=== PATIENT | male | born 1960 | race Caucasian/White ===

== ENCOUNTER 2019-09-25 08:53 | Emergency (ER) | payer BC ==
--- NOTE | 2019-09-25 09:05 | EDM.PDOC ---
ED HPI GENERAL MEDICAL PROBLEM - General Chief Complaint: Skin Complaint Stated Complaint: EAR INFECTION Time Seen by Provider: 09/25/19 09:04 Source of Information: Reports: Patient, RN, RN Notes Reviewed History Limitations: Reports: No Limitations - History of Present Illness INITIAL COMMENTS - FREE TEXT/NARRATIVE: Pt presents to ER from home by POV with c/o redness, swelling, and drainage to the B/L ears. The ear redness started 09/23/19, while walking in some [place] while wearing a straw hat that was rough and poked his ears. He thinks he spread it to his penis by touching ears then touching penis. Denies fever or chills. Not diabetic. Onset: Gradual Duration: Constant, Getting Worse Location: Reports: Other (Ears and penis) Severity: Moderate Improves with: Reports: None Worsens with: Reports: None Associated Symptoms: Reports: No Other Symptoms - Related Data Allergies Allergy/AdvReac Type Severity Reaction Status Date / Time No Known Allergies Allergy Verified 09/25/19 09:04 Home Meds: Home Meds Tamsulosin HCl 0.4 mg PO DAILY 09/25/19 [History] Past Medical History - Past Health History Medical/Surgical History: Denies Medical/Surgical History Social & Family History - Family History Family Medical History: Noncontributory - Living Situation & Occupation Living situation: Reports: , with Spouse Occupation: Other ([employer]) ED ROS GENERAL - Review of Systems Review Of Systems: Comprehensive ROS is negative, except as noted in HPI. ED EXAM, SKIN/RASH Exam: See Below Exam Limited By: No Limitations General Appearance: Alert, WD/WN, No Apparent Distress Eye Exam: Bilateral Eye: Normal Inspection Ears: Normal Canal, Normal TMs, Other (B/L external ears erythematous with mild soft tissue swelling, weeping and honey crusted.) Nose: Normal Inspection, Normal Mucosa, No Blood Throat/Mouth: Normal Inspection, Normal Lips, Normal Teeth, Normal Gums, Normal Oropharynx, Normal Voice, No Airway Compromise Head: Atraumatic, Normocephalic Neck: Normal Inspection, Supple, Non-Tender, Full Range of Motion. No: Lymphadenopathy (L), Lymphadenopathy (R) Respiratory/Chest: No Respiratory Distress Extremities: Normal Inspection Neurological: Alert, Oriented Psychiatric: Normal Mood Course - Vital Signs Last Recorded V/S: Last Vital Signs Temp 98.4 F 08/02/20 09:04 Pulse 88 09/25/19 09:04 Resp 16 09/25/19 09:04 BP 171/101 H 09/25/19 09:04 Pulse Ox 99 09/25/19 09:04 - Orders/Labs/Meds Meds: Medications Discontinued Medications Generic Name Dose Route Start Last Admin Trade Name Jann PRN Reason Stop Dose Admin Cephalexin 500 mg 09/25/19 09:16 Keflex PO 09/25/19 09:17 ONETIME ONE Departure - Departure Time of Disposition: 09:18 Disposition: Home, Self-Care 01 Condition: Good Clinical Impression: Impetigo - Discharge Information *PRESCRIPTION DRUG MONITORING PROGRAM REVIEWED*: Not Applicable *COPY OF PRESCRIPTION DRUG MONITORING REPORT IN PATIENT FAREED: Not Applicable Instructions: Impetigo, Adult Forms: ED Department Discharge Additional Instructions: Rx: Cephalexin 500mg Rx: Bactroban Ointment 2% Follow up in clinic if not improving in 2 days. Sepsis Event Note (ED) - Focused Exam Vital Signs: Vital Signs Temp Pulse Resp BP Pulse Ox 09/25/19 09:04 98.4 F 88 16 171/101 H 99
[2019-09-25] MEDS ORDERED: Cephalexin 500 MG Cap PO ONE (09:16)
== END 2019-09-25 09:24 | disposition home or self-care (01) ==
LOC: DL.ED 08:53
DX: L01.00 Impetigo, unspecified (principal); H62.43 Otitis externa in other diseases classified elsewhere, bilateral
CPT/HCPCS: 99282; A9270

== ENCOUNTER 2021-08-17 11:00 | Emergency (ER) | payer BC ==
[2021-08-17] MEDS: cefTRIAXone 1 GM, Lidocaine 1% 2.1 ML IM ONE ×2 (12:19)
== END 2021-08-17 12:20 | disposition home or self-care (01) ==
LOC: DL.ED 11:00
DX: N39.0 Urinary tract infection, site not specified (principal)
CPT/HCPCS: 81001; 87086; 96372; 99283; J0696